=== PATIENT | male | born 1985 | race Caucasian/White ===

== ENCOUNTER 2018-12-04 15:22 | Emergency (ER) | payer OTHER, SELFPAY ==
[2018-12-04 15:23] VITALS: BP 152/82; PULSE 98; RESP 16; TEMP 36.1; O2SAT 96; BMI 41.5
--- NOTE | 2018-12-04 15:47 | ED.VIS.GEN ---
History of Present Illness Chief Complaint: Abscess Informant: Patient Onset: Days - 2 Context: Gradual Onset Timing: Continuous Current Severity: Moderate Maximum Severity: Moderate Narrative: Patient is a 33-year-old male with history of recurrent pilonidal cyst as well as 3 surgeries for resection of pilonidal cyst presenting with a pilonidal abscess. Patient states he has a chronically draining wound on his upper gluteal cleft that is unchanged. Over the past 2 days he has had increased pain and swelling above that. Patient states his last pilonidal abscess that required I&D was in March. He states that he had 2 surgeries at [facility] and then 1 at [facility]. His last surgery was in 2015. Patient did follow-up with a surgeon in the area but he does not recall the name. He states he was referred to another surgery in [place] but was unable to get transportation out there. Patient states he has a better financial situations and a better job now so he wants to get set back up with specialist again. Patient denies any associated fever or chills. He states he has chronic diarrhea but has no change in this. States diarrhea is been going on for years. He denies any nausea or vomiting. He is not having any stool come out of his chronically draining wound, just blood and clear fluid. Patient denies any other complaints at this time. He does not have pain with bowel movements. Past Medical History - Allergies and Home Meds Allergies/Adverse Reactions: Allergies bee venom protein (honey bee) Allergy (Verified 12/04/18 15:26) Angioedema aripiprazole [From Abilify] Adverse Reaction (Verified 12/04/18 15:26) Other Primary Care Physician: Carmen Palencia MD [Primary Care Provider] - Nadine Kelly MD [STAFF PHYSICIAN] - Past Medical History: - - Recurrent pilonidal cyst Surgical History: - - Pilonidal cystectomy x3 Review of Systems All systems negative except as indicated Skin: Reports: Abscess - Right upper buttocks Physical Exam Vital Signs/Narrative: Vital Signs Temp Pulse Resp BP Pulse Ox 12/04/18 15:23 97 F L 98 16 152/82 H 96 Inital Vital Signs reviewed: Yes General: Well nourished, Well developed, Obese, No Acute Distress Head: Normocephalic, Atraumatic Eyes: Perrl, EOMI ENT: Moist mucous membranes, No rhinorrhea Neck: Supple, Nontender Cardiovascular: Regular rate, Regular rhythm, No murmurs Respiratory: No distress, CTA bilaterally, Chest nontender Abdomen: Soft, Nontender, Nondistended, Normal bowel sounds Back: Nontender, Normal Inspection Extremities: Nontender, No edema Skin: No rash, - - 3 cm x 2 cm area of erythema and fluctuance just above and to the right of the gluteal cleft consistent with a pilonidal abscess. 2 cm below that patient has chronic skin changes and what looks to be a chronically draining tract of serosanguineous fluid. There is no surrounding cellulitic changes to either sites. Mild associated tenderness to palpation of the abscess Neurological: Alert, Oriented x3, Cranial nerves II-XII grossly intact, Normal Strength, Normal Sensation Psychological: Normal affect, Normal Mood Diagnostic/Tx/Re-eval - Medical Decision Making Patient has a pilonidal abscess. Incision and drainage performed. See procedure note. Patient was placed on empiric antibiotics. Patient is counseled that he does need to follow-up with surgery as this is an ongoing issue. In addition he does have a chronically draining tract right below this. It also does not appear infected. He does not have any pain with defecation and does not have other signs of a perirectal/perianal abscess. Patient is given a dose of Motrin in the emergency room. Patient is counseled on signs and symptoms requiring return to the emergency room. Patient verbalizes agreement and understand this plan. Patient discharged home in stable and improved condition. Procedures Procedure(s): Incision and drainage. Informed consent obtained. 2 cc of 1% lidocaine with epinephrine injected subcutaneously to make a wheal overlying the abscess. A #15 blade is used to make a 1 cm linear incision. A significant amount of purulent drainage is expressed. Hemostats used to open up any loculations. Iodoform gauze packing is placed. Patient tolerated procedure well. No significant blood loss. No immediate complications. Bandage is placed. ED Disposition - Plan for ED Patient: Disposition: Home or Assisted Living Diagnosis: Pilonidal abscess Instructions: PILONIDAL CYST, Infected (Incision and Drainage) Prescriptions: Amoxicillin/Potassium Clav [Augmentin 875-125 Tablet] 1 ea PO BID #20 tab Prescription Printed Ibuprofen 600 mg PO 4X/DAY PRN #20 tab PRN Reason: Pain Or Fever Prescription Printed Referrals: Carmen Palencia MD [Primary Care Provider] - Nadine Kelly MD [STAFF PHYSICIAN] - Additional Instructions: Take antibiotics as prescribed. Pull the packing slightly out every day until it comes out completely. Follow-up with Dr. Kelly surgery for further evaluation of these pilonidal abscesses. He can take ibuprofen and/or Tylenol as needed for your pain. You have been prescription prescribed 600 mg ibuprofen today. Return to the emergency room with any worsening symptoms or concerns.
[2018-12-04] MEDS: Ibuprofen 600 MG Tablet PO (16:30)
== END 2018-12-04 18:11 | disposition home or self-care (01) ==
PROVIDERS: Emergency Provider Emergency Medicine; Family Provider Internal Medicine; PCP Internal Medicine
DX: L05.01 Pilonidal cyst with abscess (principal)
CPT/HCPCS: 10080; 99283

== ENCOUNTER → 2020-09-18 10:40 | Outpatient (CLI) | payer BC, SELFPAY ==
[2020-09-18 16:10] LABS: Anion Gap 5 (5-15); BUN 9 mg/dL (7-18); BUN/Creat Ratio 13.7 RATIO (10-20); Chloride 107 mmol/L (98-107); Cholesterol 184 mg/dL (200); Creatinine, Serum 0.66 mg/dL (0.70-1.30); EST Glomerular Filtration Rate 147 mL/min (>60); Est Glom Filt Rate - Afr Amer 178 mL/min (>60); Glucose 88 mg/dL (74-106); High Density Lipoprotein 34 mg/dL; Potassium 4.4 mmol/L (3.5-5.1); Sodium Level 140 mmol/L (136-145); Thyroid Stim Hormone (TSH) 2.02 uIU/mL (0.358-3.74); Triglycerides 143 mg/dL; Very Low Density Lipoprotein 29 mg/dL (5-40)
== END ==
LOC: MFPLAB 10:44
PROVIDERS: PCP Family Medicine; Referring Provider Family Medicine; Visit Provider Family Medicine
DX: Z00.00 Encounter for general adult medical examination without abnormal findings (principal)
CPT/HCPCS: 36415; 80048; 80061; 82306; 84443

== ENCOUNTER 2021-03-24 18:23 | Emergency (ER) | payer BC, SELFPAY ==
[2021-03-24 18:24] VITALS: BP 187/98; PULSE 100; RESP 18; TEMP 35.9; O2SAT 98; BMI 41.7
--- NOTE | 2021-03-24 20:34 | EDS_ITS ---
HPI History of Present Illness Chief Complaint: Wound Informant: patient Narrative Narrative: Patient presents for wound check. Patient had surgery for pilonidal cyst on the right 11th. He has a wound VAC in place. He is due to have the wound VAC canister changed but does not have home nursing set up. [facility] Medical History Pilonidal cyst Home Medications fluoxetine 40 mg PO DAILY 03/24/21 [History Last Taken Unknown] oxycodone 5 mg PO Q8H PRN 03/24/21 [History Last Taken Unknown] Allergy/AdvReac Type Severity Reaction Status Date / Time bee venom protein (honey bee) Allergy Angioedema Verified 12/04/18 15:26 aripiprazole [From Abilify] AdvReac Other Verified 12/04/18 15:26 Social History Smoking Status: Current every day smoker tobacco type: cigarettes ROS ROS ED Constitutional Constitutional ED: Denies chills or fever(s) Eyes Eyes: Denies change in vision ENT ENT ED: Denies sore throat Cardiovascular Cardiovascular: Denies chest pain Respiratory/Chest Respiratory/Chest: Denies cough or dyspnea Gastrointestinal Gastrointestinal: Denies abdominal pain, nausea or vomiting Genitourinary Genitourinary ED: Denies dysuria Musculoskeletal Musculoskeletal: Denies back pain Integumentary Reports other Details: Pain at site of wound VAC over lower back/buttocks. Neurologic Neurologic: Denies headache(s) or weakness Allergic/Immunologic Allergic/Immunologic ED: Denies urticaria EXAM Physical Exam Const Vital Signs: 03/24/21 18:24 Temperature 96.6 F L Temperature Source Temporal Pulse Rate 100 Respiratory Rate 18 Blood Pressure 187/98 H Blood Pressure Mean 127 Pulse Ox 98 Oxygen Delivery Method Room Air Positive well nourished and well developed General Appearance ED: well developed HEENT Reports moist mucous membranes Eyes PERRL and EOMs intact bilaterally Neck supple Chest Wall inspection of chest normal and palpation of chest normal Resp normal respiratory effort and clear to auscultation bilaterally Cardio regular rate and regular rhythm GI Palpation: soft Back/Spine Back/Spine Narrative: Wound VAC in place over the upper buttocks. No surrounding erythema. Neuro oriented x3 Sensorium / Orientation: alert MDM MDM Treatment and Re-Evaluation Comments:: Nursing staff will change out the canister on the wound VAC. Social work will contact patient tomorrow to set up home health. Discharge Plan Triage Chief Complaint: Wound ED Provider: Mira Ruiz Dx/Rx/DC Orders Clinical Impression: Visit for wound check Instructions: ED Wound Check (No Infection) Prescriptions: No Action oxycodone 5 mg Tablet 5 mg PO Q8H PRN (Reason: Pain) RF: 0 fluoxetine 40 mg Capsule 40 mg PO DAILY RF: 0 Primary Care Provider: Brock Landa Referrals: Brock Landa MD [Primary Care Provider] - Activity Restrictions/Additional Instructions: Follow-up with your surgeon as scheduled. Social work will arrange home health for you tomorrow. Disposition Disposition: Home, Self Care
--- NOTE | 2021-03-24 20:40 | ED.RN ---
THIS RN CHANGED WOUND VAC CANISTER. SITE IS CLEAN, NO REDNESS OR SWELLING. PATIENT TOLERATED WELL. CASE MGMT TO FOLLOW UP AND ASSIST WITH HOME HEALTH SET UP. EDUCATED PATIENT ON WOUND VAC, PATIENT VERBALIZES UNDERSTANDING.
--- NOTE | 2021-03-24 21:00 | CASEMGMT ---
BAHMAN CHARLES note: RN ARACELI to room to meet with patient for reported need of HHC set-up. BAHMAN CHARLES introduced self and role at [facility]. Patient voices understanding and agrees to speak with CM at this time. Male visitor at bedside. Patient is alert and oriented and answers all questions appropriately. Patient reports he had surgery for pilonidal cyst at [facility] per Dr. Cal Nayak on 03/21/2021. [facility] telephone number [phone]. Patient has wound vac in place and was instructed to have dressing change 3x/week. Patient reports his surgery was originally scheduled for Sunday March 07, 2021 with [facility] [id number] date planned for the following Wednesday March 10, 2021 for wound care needs. Patient states he reported for surgery that day but subsequently tested positive for COVID pre-op and therefore surgery was postponed until March 21, 2021. Patient reports [facility] plans did not follow through with postponed procedure. Wound vac needed changed today and no HHC established. Patient reports he called [facility] approximately 1000 today to inquire about [id number] visit but, per patient, [facility] reported they need new or additional documentation from the surgery center prior to scheduling visit. [facility] telephone number [phone]. Patient attempted to follow-up on telephone call to [facility] but unsuccessful and did not receive return call prior to office closing. Per documentation, patient's wound vac canister was changed in the emergency department tonight and patient reports his discomfort is improved at this time; feeling better. Wound vac dressing change again due Sunday 03/26. BAHMAN CHARLES to follow up with [facility] during business hours tomorrow to help facilitate start of services. Patient informed BAHMAN CHARLES will be in contact with him tomorrow to confirm HHC established and address any further needs. Voices understanding. Patient denies further needs at this time. Demographics verified. BAHMAN Aly CM
[2021-03-24 21:11] VITALS: BP 187/98; PULSE 100; RESP 18; O2SAT 98
--- NOTE | 2021-03-26 10:05 | CASEMGMT ---
BAHMAN CHARLES ED follow-up: BAHMAN CHARLES placed call to patient's telephone number listed on demographics, patient answered. BAHMAN CHARLES introduced self and role at [facility]. Patient reports [facility] HHC has been established and home health nurse is actually on her way right now for [id number] visit. Patient denies further questions, concerns or needs. BAHMAN Aly CM
== END 2021-03-24 21:11 | disposition home or self-care (01) ==
LOC: ED 20:50
PROVIDERS: Emergency Provider Emergency Medicine; PCP Family Medicine; Visit Provider Emergency Medicine
DX: Z48.03 Encounter for change or removal of drains (principal); F17.210 Nicotine dependence, cigarettes, uncomplicated
CPT/HCPCS: 99282